=== PATIENT | female | born 1955 | race Caucasian/White ===

== ENCOUNTER 2017-06-11 07:11 | Day surgery (SDC) | payer OTHER ==
[2017-06-09 13:35] LABS: HEMATOCRIT 37.7 % (36.0-48.0); HEMOGLOBIN 11.8 g/dL (12.0-16.0)
[2017-06-09 13:51] LABS: CALCIUM, SERUM 8.9 MG/DL (8.5-10.4); CHLORIDE, SERUM 107 MMOL/L (96-112); CO2 (CARBON DIOXIDE) 27 MMOL/L (24-34); CREATININE 0.73 MG/DL (0.55-1.02); GFR AFRICAN AMERICAN 104 ML/MIN (>=60); GFR NON AFRICAN AMERICAN 90 ML/MIN (>=60); GLUCOSE, SERUM 82 MG/DL (60-99); POTASSIUM, SERUM 3.8 MMOL/L (3.5-5.3); SODIUM, SERUM 142 MMOL/L (135-148)
[2017-06-09 13:52] LABS: BUN (BLOOD UREA NITROGEN) 15 MG/DL (6-23)
[~2017-06-11] VITALS: Ht 152.4 cm; Wt 64.9 kg
--- NOTE | ~2017-06-11 | OP ---
Record Of Operation [facility] [address] [place]. [address] NAME: VIVIEN COREA : 57 STATUS : [facility]#: [id number] AGE: 61 ADM/REG DATE : 06/11/17 MR#: [id number] REPORT SERV DATE: 06/11/17 DICTATED BY: Roland STEVENS DATE: 06/11/17 REPORT STATUS : Draft TRANSCRIBED BY: SHEREE DATE: 06/11/17 DATE OF PROCEDURE: 06/11/2017 PREOPERATIVE DIAGNOSIS: Indeterminate bladder mass with calcifications. POSTOPERATIVE DIAGNOSES: 1. Left bladder wall calcification. 2. Intravesical foreign body (suture). PROCEDURES: Cystoscopy, bilateral retrograde pyelography, cystolitholapaxy (small), excision of intravesical suture, bladder biopsy x2 with fulguration, Tavares catheter placement, examination under anesthesia. ANESTHESIA: General. COMPLICATIONS: None. DRAINS: 20-Djiboutian two-way Tavares catheter. ESTIMATED BLOOD LOSS: Minimal. BRIEF HISTORY: Ms. Corea is a 61-year-old white female, recently seen for apparent urinary tract infection. She had multiple documented cultures and has multiple antibiotic allergies as well. She also complains of persistent dysuria and bladder or urethral spasm and had recent back surgery. I obtained a CT urogram which showed calcifications in the left anterolateral bladder wall with bladder wall thickening and possible mass. She also had a history of extensive BETTING CLERK surgery with a sling and postoperative hematomas, ultimately necessitating a redo sling in about 2007. We discussed plans to remove the calcifications, biopsy and remove the mass or any associated abnormalities. The risks of bleeding, infection, anesthesia, injury to adjacent organs, inability to completely remove the causative agent, need for postoperative catheter, etc. were all discussed. There were no unanswered questions. DESCRIPTION OF PROCEDURE: Under excellent general anesthesia, the patient was prepped and draped in standard lithotomy position. Bimanual exam revealed no evidence of intravaginal lesions. She is status post hysterectomy. Her urethra appeared normal. Cystoscopy was performed with 30 and 70-degree lenses and revealed a cystocele with normal orifices bilaterally. There was 1 lesion noted in the bladder wall which is on the left anterolateral bladder wall. Closer inspection revealed multiple calcifications along what appeared to be a foreign body consistent with intravesical suture. I started with breaking up the stones and all stones were removed from the bladder wall and suture and ultimately from the bladder. This then revealed a clear suture that appeared intertwined, I suppose what it had to do was the upper aspect of one of her slings and there were multiple pieces emanating from different parts of that part of her bladder. I had tried to pull this out initially, but that was proved too difficult. I then used the endoscopic scissors and cut this flush with the bladder wall until there was no further visible suture. The underlying Record Of Operation [facility] [address] [place]. [address] NAME: VIVIEN COREA : 57 STATUS : [facility] PAT#: [id number] AGE: 61 ADM/REG DATE : 06/11/17 MR#: [id number] REPORT SERV DATE: 06/11/17 DICTATED BY: Roland STEVENS DATE: 06/11/17 REPORT STATUS : Draft TRANSCRIBED BY: MODL DATE: 06/11/17 tissue was obviously inflamed and I suspect it is benign, but I took two biopsies of that as well just to be certain. I then used the Bugbee electrode to thoroughly fulgurate this entire area which was probably 3 or 4 cm by this time. Bleeding was well controlled. I placed a 20-Djiboutian two-way Tavares catheter and terminated the procedure. I plan to discharge Ms. Corea as an outpatient with the following instructions. DISCHARGE INSTRUCTIONS: 1. Home today. 2. Tavares catheter to be removed per patient tomorrow. 3. Follow up in my office in one week to review pathology and discussed intraoperative findings. 4. Percocet 5/325 one to two p.o. q.4 hours p.r.n. pain, #20. 5. Pyridium 200 mg one p.o. t.i.d. p.r.n. bladder pain. FALLON/SHEREE Roland Stevens M.D. / [id number] CC: Nando Blanton M.D.
[~2017-06-11 07:11] MED LIST: ADVAIR250 INH; ASMANEX INH; AUG875 PO; BENADRYL 50 MG50 MG PO; BENTYL10 PO; CALCIUM PO; CALTRA600D PO; COZ50 PO; CYANO1000T PO; DONNATA1 OR; FLEXERIL5 MG PO; GENTAMICIN IV; HEMOCYTE PLUS PO; HYCET 7.5 MG-3473 ML PO; KAPIDEX60 MG PO; KLOR-CON 1010 MEQ PO; L20 PO; LIOR10 PO; LOPID6 PO; MAXZIDE PO; MULTIVITAMI1 PO; MULTIVITAMIN CHEW PO; NASONEX NAS; NEUR300 PO; NEUR600 PO; NORV10 PO; NORV5 PO; P10 PO; PEPCID COMPLETE PO; PROAIR HFA INH; PROTONIX PO; RANITIDINE300 MG PO; REGLAN 5 MG TAB5 MG PO; SINGULAIR1 PO; TESS PO; TRAZ50 PO; VENTOLIN HFA INH; VIST25 PO; VITAMIN B PO; VITC500 PO; Z-PAK PO; ZANTAC300 MG PO; ZITH250 PO; ZOFRAN8 PO; ZOL100 PO
== END 2017-06-11 12:55 | disposition home or self-care (01) ==
LOC: SDC 07:11
PROC: 0T5B8ZZ Destruction of Bladder, Via Natural or Artificial Opening Endoscopic (ICD-10-PCS; principal; 2017-06-11 09:00)
DX: N30.00 Acute cystitis without hematuria (principal); N30.20 Other chronic cystitis without hematuria; F90.9 Attention-deficit hyperactivity disorder, unspecified type; M19.90 Unspecified osteoarthritis, unspecified site; J45.909 Unspecified asthma, uncomplicated; F41.9 Anxiety disorder, unspecified; F32.9 Major depressive disorder, single episode, unspecified; E78.5 Hyperlipidemia, unspecified; K21.9 Gastro-esophageal reflux disease without esophagitis; I10 Essential (primary) hypertension; G43.909 Migraine, unspecified, not intractable, without status migrainosus; G47.33 Obstructive sleep apnea (adult) (pediatric); M81.0 Age-related osteoporosis without current pathological fracture; Z86.73 Personal history of transient ischemic attack (TIA), and cerebral infarction without residual deficits; Z90.49 Acquired absence of other specified parts of digestive tract; Z90.710 Acquired absence of both cervix and uterus; Z98.890 Other specified postprocedural states; Z79.899 Other long term (current) drug therapy; Z88.1 Allergy status to other antibiotic agents; Z88.2 Allergy status to sulfonamides; Z88.8 Allergy status to other drugs, medicaments and biological substances; Z87.891 Personal history of nicotine dependence; Z87.440 Personal history of urinary (tract) infections
CPT/HCPCS: 74420; 80048; 85014; 85018; 88305; 93005; A9270-GY; J1580; J2250; J2405; J3010; Q9967